=== PATIENT | female | born 1990 | race Caucasian/White ===

== ENCOUNTER 2024-09-06 02:45 | Emergency (ER) | payer SELFPAY ==
[2024-09-06] MEDS ORDERED: ONDA4TAB11 PO (06:06)
[2024-09-06] MEDS ORDERED: FAMO20TA80 PO (06:06)
[2024-09-06] MEDS ORDERED: CEPH500C2 PO (06:06)
== END 2024-09-06 03:06 | disposition left against medical advice (07) ==
LOC: ER 02:51
DX: R42 Dizziness and giddiness (principal); R19.7 Diarrhea, unspecified; R50.9 Fever, unspecified; Z53.21 Procedure and treatment not carried out due to patient leaving prior to being seen by health care provider

== ENCOUNTER 2024-09-06 03:40 | Emergency (ER) | payer SELFPAY ==
[~2024-09-06] VITALS: Ht 167.6 cm; Wt 61.2 kg
[2024-09-06] MEDS ORDERED: FAMOTIDINE (20 MG) 20 MG TABLET ONE (04:39)
[2024-09-06] MEDS ORDERED: ONDANSETRON HCL/PF 4 MG/2 ML VIAL ONE (04:39)
[2024-09-06] MEDS: ONDANSETRON HCL/PF 4 MG/2 ML VIAL IVP ONE (04:40)
[2024-09-06] MEDS: FAMOTIDINE (20 MG) 20 MG TABLET PO ONE (04:40)
[2024-09-06] MEDS: IV NS 0.9% 1,000 ML BAG IV ONE (04:40)
[2024-09-06 04:48] LABS: BASOPHILS % (AUTO) 0.3 % (0.0-2.0); EOSINOPHILS % (AUTO) 0.2 % (0.0-6.0); HEMATOCRIT 37 % (33-45); HEMOGLOBIN 12.9 g/dL (11.5-14.8); LYMPHOCYTES # (AUTO) 0.8 K/uL (0.8-4.8); LYMPHOCYTES % (AUTO) 8.1 % (20.0-44.0); MEAN CORPUSCULAR HEMOGLOBIN 31 PG (26.0-33.0); MEAN CORPUSCULAR HGB CONC 35 g/dl (31.0-36.0); MEAN CORPUSCULAR VOLUME 89 fL (82-100); MONOCYTES # (AUTO) 0.3 K/uL (0.1-1.30); MONOCYTES % (AUTO) 2.7 % (2.0-12.0); NEUTROPHILS # (AUTO) 8.6 K/uL (1.8-8.9); NEUTROPHILS % (AUTO) 88.7 % (43.0-81.0); PLATELET COUNT (AUTO) 217 K/uL (150-450); RED BLOOD CELL COUNT(AUTO) 4.19 MIL/uL (4.0-5.2); WHITE BLOOD COUNT (AUTO) 9.7 K/uL (4.3-11.0)
[2024-09-06 05:25] LABS: BILIRUBIN,TOTAL 0.7 mg/dL (0.2-1.0); CALCIUM, SERUM 9.2 mg/dL (8.5-10.1); POTASSIUM 3.7 mmol/L (3.5-5.1); TOTAL PROTEIN, SERUM 7.8 g/dL (6.4-8.2)
[2024-09-06 05:31] LABS: APPEARANCE,URINE CLEAR (CLEAR); BILIRUBIN,URINE NEGATIVE (NEGATIVE); BLOOD, URINE 3+ Ery/uL (NEGATIVE); COLOR,URINE YELLOW (YELLOW); KETONES,URINE 1+ mg/dL (NEGATIVE); LEUKOCYTE ESTERASE ,URINE 1+ (NEGATIVE); NITRITE, URINE NEGATIVE (NEGATIVE); PROTEIN,URINE NEGATIVE (NEGATIVE); UGLUCOSE NEGATIVE (NEGATIVE); UROBILINOGEN,URINE 0.2 EU/dL (0.2)
[2024-09-06 05:32] LABS: PREGNANCY TEST URINE QUAL NEGATIVE (NEGATIVE)
[2024-09-06 05:35] LABS: ALBUMIN 3.7 g/dL (3.4-5.0); CREATININE 0.9 mg/dL (0.6-1.3)
[2024-09-06 05:40] LABS: BILIRUBIN,DIRECT 0.2 mg/dL (0.0-0.2)
[2024-09-06 05:45] LABS: ADD URINE CULTURE YES; BACTERIA,URINE 2+ /HPF (None Seen)
[2024-09-06] MEDS ORDERED: CEPH500C2 PO (06:06)
[2024-09-06] MEDS ORDERED: FAMO20TA80 PO (06:06)
[2024-09-06] MEDS ORDERED: ONDA4TAB11 PO (06:06)
[2024-09-06 06:38] VITALS: BP 130/82; TEMP 98.7; O2SAT 99
[2024-09-06] MEDS: CEPHALEXIN MONOHYDRATE 500 MG CAPSULE PO ONE (06:39)
== END 2024-09-06 06:40 | disposition home or self-care (01) ==
LOC: ER 03:43
DX: B34.9 Viral infection, unspecified (principal); R11.2 Nausea with vomiting, unspecified; R19.7 Diarrhea, unspecified; N39.0 Urinary tract infection, site not specified
CPT/HCPCS: 99283; 96374; 96361; 85025; 80048; 87086; 83690; 80076; 84703; 81001; 36415; J2405; J7030